=== PATIENT | female | born 1950 | race Caucasian/White ===

== ENCOUNTER 2019-07-31 06:51 | Emergency (ER) | payer MEDICARE, OTHER ==
[~2019-07-31] VITALS: Ht 157.5 cm; Wt 76.7 kg
--- NOTE | 2019-07-31 07:01 | NUR ---
PT [facility]RA FOR LLE PAIN S/P GLF 07/28/19. PT IS A/OX3. ON ROOM AIR, BREATHING EVEN AND UNLABORED. DENIES SOB, CP. PLACED ON WOVEN BLIND LOOM TENDER.
--- NOTE | 2019-07-31 07:02 | NUR ---
AT BEDSIDE FOR EVAL
--- NOTE | 2019-07-31 07:14 | NUR ---
BEDSIDE REPORT GIVEN TO DAY SHIFT RN FOR SKYLA
[2019-07-31] MEDS ORDERED: KETOROLAC TROMETHAMINE INJ 30 MG/ML VIAL ONE (07:17)
[2019-07-31] MEDS ORDERED: HYDROCODONE/APAP 5/325MG 1 EACH TABLET ONE (07:18)
[2019-07-31] MEDS ORDERED: METOPROLOL TARTRATE 25 MG TABLET ONE ×2 (07:18→07:26)
[2019-07-31] MEDS ORDERED: METOPROLOL SUCCINATE 25 MG TAB.SR.24H PO SCH (07:30)
[2019-07-31] MEDS ORDERED: METOPROLOL TARTRATE 25 MG TABLET PO ONE (07:30)
[2019-07-31] MEDS ORDERED: oxyCODONE/APAP (5/325 MG) 1 UDTAB TABLET PO ONE (07:30)
[2019-07-31] MEDS ORDERED: HYDROCODONE/APAP 5/325MG 1 EACH TABLET PO ONE (07:30)
[2019-07-31] MEDS ORDERED: KETOROLAC TROMETHAMINE INJ 30 MG/ML VIAL IM ONE (07:30)
[2019-07-31] MEDS ORDERED: oxyCODONE/APAP (5/325 MG) 1 UDTAB TABLET ONE (07:39)
--- NOTE | 2019-07-31 07:43 | NUR ---
REPORT RECEIVED FROM HECTOR MULLER. PATIENT RESTING INSIDE ROOM. AWAKE, ALERT AND ORIENTED X 3. NO ACUTE DISTRESS. WILL CONTINUE TO MONITOR
--- NOTE | 2019-07-31 09:36 | NUR ---
Patient discharged to home in stable condition. Written and verbal after care instructions given. Written prescription provided to patient. Patient verbalizes understanding of instruction.
[2019-07-31 09:37] VITALS: BP 142/72
== END 2019-07-31 09:38 | disposition home or self-care (01) ==
LOC: ER 06:57
DX: M25.552 Pain in left hip (principal); I10 Essential (primary) hypertension; M54.5 Low back pain; Z98.890 Other specified postprocedural states; W18.39XA Other fall on same level, initial encounter; Y93.89 Activity, other specified; Y92.89 Other specified places as the place of occurrence of the external cause; Y99.8 Other external cause status
CPT/HCPCS: 73503; 96372; 99283; J1885; 73502